=== PATIENT | female | born 2000 | race Two or more races ===

== ENCOUNTER 2025-06-07 04:00 | Inpatient (IN) | payer MEDICAID ==
[2025-06-05 11:27] LABS: Hematocrit 36.8 % (36.0-46.0); Hemoglobin 12.3 g/dL (12.2-16.2); Mean Corpuscular Hemoglobin 27.8 pg (28.0-32.0); Mean Corpuscular Volume 82.9 fL (80.0-100.0); Nucleated Red Blood Cells % 0.0 %
[2025-06-05 11:45] LABS: Alanine Aminotransferase 18 U/L (7-40); Anion Gap 10 (5-15); BUN/Creatinine Ratio 8.2 (10.0-20.0); Calcium 8.9 mg/dL (8.7-10.4); Carbon Dioxide 24 mmol/L (20-31); Chloride 105 mmol/L (98-107); Potassium 3.7 mmol/L (3.5-5.1); Sodium 139 mmol/L (136-145); Total Protein 7.3 g/dL (5.7-8.2)
[2025-06-05 11:46] LABS: Albumin 4.2 g/dL (3.2-4.8); Bilirubin, Total 0.9 mg/dL (0.2-1.0)
[2025-06-05 11:49] LABS: Alkaline Phosphatase 157 U/L (46-116); Blood Urea Nitrogen 5 mg/dL (9-23); Glucose 72 mg/dL (74-106)
[2025-06-05 12:04] LABS: INR 0.99 (0.9-1.15); Partial Thromboplastin Time 27.6 SEC (24.5-34.5); Prothrombin Time 10.5 sec (9.3-11.8)
[2025-06-05 12:11] LABS: Urine Protein, UAD TRACE (Negative)
[2025-06-05 12:57] LABS: Amphetamine Screen, Urine Neg (NEGATIVE); Barbiturate Scree,Urine Neg (NEGATIVE); Benzodiazephine Screen, Urine Neg (NEGATIVE); Cannabinoid Screen, Urine Neg (NEGATIVE); Cocaine Screen, Urine Neg (NEGATIVE); Opiate Scree,Urine Neg (NEGATIVE); Phencyclidine Screen, Urine Neg (NEGATIVE)
[2025-06-07] VITALS (15 sets, daily range): BP systolic 96–121; BP diastolic 52–72; PULSE 67–81; RESP 12–18; TEMP 97.7–98.4; O2SAT 95–100
[~2025-06-07] VITALS: Ht 160 cm; Wt 74.8 kg
[2025-06-07] MEDS: LACTATED RINGER'S 1,000 ML IV ONE (04:56)
[2025-06-07] MEDS ORDERED: MORPHINE SULF PF 5 MG/10 ML VIAL ONE (06:56)
[2025-06-07] MEDS ORDERED: ONDANSETRON HCL 4 MG/2 ML VIAL ONE (07:28)
[2025-06-07] MEDS: ceFAZolin 2 GM/D5W50ml 50 ML IV ONE (07:30)
[2025-06-07] MEDS ORDERED: GUM (CHEWING) 1 GUM CHEW CHEW ONE (08:00)
[2025-06-07] MEDS ORDERED: DOCU-94 PO (08:09)
[2025-06-07] MEDS ORDERED: HYDR-4072 PO (08:09)
[2025-06-07] MEDS ORDERED: IBUP-1456 PO (08:09)
[2025-06-07] MEDS ORDERED: NALOXONE HCL 0.4 MG/ML VIAL IV PRN (08:30)
[2025-06-07] MEDS ORDERED: MEPERIDINE HCL (25 MG/ML) 1ML VIAL IV PRN (08:30)
[2025-06-07] MEDS ORDERED: ONDANSETRON HCL 4 MG/2 ML VIAL IV PRN ×3 (08:30→14:30)
[2025-06-07] MEDS ORDERED: HYDROmorphone HCL 2 MG/ML VL/or syr IV PRN ×2 (08:30)
[2025-06-07] MEDS ORDERED: METOCLOPRAMIDE HCL 5MG/ml INJ 2ml VIAL IV PRN (08:30)
[2025-06-07] MEDS ORDERED: diphenhydrAMINE HCL 50 MG/1 ML VL IV PRN (08:30)
[2025-06-07] MEDS ORDERED: BUPIVACAINE/DEXTROSE MPF 0.75% 2 ML AMP IT ONE (08:34)
--- NOTE | 2025-06-07 09:37 | DVHHP ---
ADMIT DATE: 06/07/2025 CHIEF COMPLAINT: Desires repeat section with bilateral tubal ligation. HISTORY OF PRESENT ILLNESS: The patient is a 25-year-old 3, para 1, with an EDC 06/12, estimated gestational age of 39 weeks, admitted for repeat section with bilateral tubal ligation. The patient has polyhydramnios. The patient denies any rupture of membranes or vaginal bleeding. She understands the risks, complications, and failure rates with tubal sterilization. PAST MEDICAL HISTORY: None. PAST SURGICAL HISTORY: . SOCIAL HISTORY: None. FAMILY HISTORY: None. ORB/PRINCIPAL SYSTEMS ENGINEER HISTORY: One section. ALLERGIES: No known drug allergies. REVIEW OF SYSTEMS: Consistent with HPI. PHYSICAL EXAMINATION: VITAL SIGNS: Stable. Afebrile. HEENT: Within normal limits. CARDIOVASCULAR: Regular rate and rhythm. LUNGS: Clear to auscultation. BREASTS: Symmetrical, no masses. ABDOMEN: Gravid. Positive heart. PELVIC: Deferred. EXTREMITIES: No clubbing, cyanosis, or edema. IMPRESSION: * Intrauterine at 39 weeks. Desires repeat section. * Previous section. * Desires bilateral tubal ligation. PLAN: Repeat section with bilateral tubal ligation. Informed consent obtained. Complications of surgery including infection, bleeding, hematoma formation, injury to bowel or bladder, surrounding organ, possibility of DVT, pulmonary embolism, and risks of anesthesia were discussed with the patient and options reviewed, and all questions answered. The patient fully understands failure rate with this procedure. Use of Filshie clip discussed with the patient. The patient wishes to proceed with planned procedure. DO NURIA Garcia TID: [id number] RECEIPT: [id number]
[2025-06-07] MEDS: ACETAMINOPHEN IV 1000 MG/100ML (10MG/ML) IV PRN ×2 (09:53→21:59)
[2025-06-07] MEDS: METOCLOPRAMIDE HCL 5MG/ml INJ 2ml VIAL IV ONE (10:03)
[2025-06-07] MEDS: SODIUM CITR/CITRIC ACID ORAL SOLN 30 ML PO ONE (10:03)
[2025-06-07] MEDS: METHYLERGONOVINE MALEATE 0.2 MG/ML AMP IM ONE (10:04)
[2025-06-07] MEDS: TRANEXAMIC ACID 10 ML ONE (10:04)
[2025-06-07] MEDS: NALBUPHINE HCL 10 MG/1ml INJECTION SUBCUT ONE (10:05)
[2025-06-07] MEDS: LACTATED RINGER'S 1,000 ML IV SCH (10:30)
[2025-06-07] MEDS: LACT. RINGERS/OXYTOCIN 20UNITS 1,000 ML IV ONE (10:30)
--- NOTE | 2025-06-07 11:41 | POSTOP ---
Post-Operative Note Post-Operative Note Preop Diagnosis term preg desires rcs with btl Postop Diagnosis: same,nuchal cordx1 Operation performed rcs with btl Specimen bbay girl,apgars 8-8,nuchal cordx1,efw 6-14/3105grams Anesthesia: Regional Anesthesiologist: any Blood Loss(fluid mgmt) 800ml Surgeon Aliyah Miranda Mold Repairer verena Implant filschie clips Complications & Mgmt none Additional Remarks h and p job no [id number] Date 06/07/25 Time 08:02 Visit Coding OBGYN Date of Service: Jun 07, 2025 Billing Provider: ALIYAH MIRANDA DO LEAD PROJECT MANAGER Common Visit Codes: 66441-[id number] INP/OBS CARE (HIGH) LEAD PROJECT MANAGER Procedure Codes: 89329-RIBTC @ TIME OF , 50311-Z-MGHOCLG DELIVERY ONLY ALIYAH MIRANDA DO Jun 07, 2025 08:05
--- NOTE | 2025-06-07 11:41 | DVHOP2 ---
Operative Report DATE OF OPERATION: 06/07/25 PREOPERATIVE DIAGNOSES: 1. Term , desires repeat section.previous csx1 2. Desires bilateral tubal ligation POSTOPERATIVE DIAGNOSES: 1. Term , desires repeat section.previous csx1 2. Desires bilateral tubal ligation,nuchal cord PROCEDURES: Repeat section with bilateral tubal ligation via Filschie Clips SURGEON: Aliyah Seals D.O./verena ANESTHESIOLOGIST: Dr. agarwal TYPE OF ANESTHESIA : spinal ESTIMATED BLOOD LOSS: 500 mL CONSENT: The patient was informed of the risks and benefits of the procedure. These include but are not limited to , complications of anesthesia, p ostoperative infection, incomplete relief of symptoms, recurrence of symptoms, damage to blood vessels, nerves and tendons, deep venous thrombosis, pulmonary embolism and possible need for repeat surgery in the future. Surgery was opted. FINDINGS: Baby [f] with apgars [8] and [8]. Grossly normal appearing tubes and ovaries. nuchal cordx1 TISSUE TO PATHOLOGY: Placenta. PROCEDURE IN DETAIL: The patient was taken to the operating room where she was placed under spinal anesthesia. She was then prepped and draped in the usual sterile manner in supine position with a leftward tilt. A Pfannenstiel skin incision was then made 2 cm above the symphysis pubis. This incision was carried to the underlying layer of fascia. The fascia was nicked in the midline and the incision was extended laterally. The superior aspect of the fascial incision was grasped and elevated. Underlying rectus muscle was dissected off bluntly. The same procedure was done to the inferior aspect of the fascial incision. The rectus muscles were then in the midline. Peritoneum was identified and entered. Peritoneal incision was extended superiorly and inferiorly with good visualization of the bladder. Bladder blade was inserted. Vesicouterine peritoneum was identified and entered. Lower uterine segment was incised in a transverse fashion. The infant was delivered from vertex presentation. The infant was baby [f] with Apgars of [8] and [8]. Placenta was then removed manually. Uterus was exteriorized and cleared off all clots and debris. Uterine incision was repaired using 0 Vicryl in a double-layered fashion. No bleeding was noted. Bilateral tubal ligation was then performed using [place]. Placed in the ampullary region and identifying the fimbria distally. The isthmic portion of the right tube was clipped using Filschie Clip. The same procedure was done on the opposite side. No bleeding was noted. Peritoneum was closed using 0 Vicryl, fascia was closed using 0 [place], and skin was closed using jason. Estimated blood loss was noted to be 800 mL. The patient tolerated the procedure well. She was taken to the recovery room in stable condition. Visit Coding OBGYN Date of Service: Jun 07, 2025 Billing Provider: ALIYAH SEALS DO AUTO DESIGN CHECKER Common Visit Codes: 13564-ILPYETS INP/OBS CARE (HIGH) AUTO DESIGN CHECKER Procedure Codes: 04596-JUGGA @ TIME OF , 20032-S-PAHGBSR DELIVERY ONLY ALIYAH SEALS DO Jun 07, 2025 08:08
[2025-06-07] MEDS ORDERED: ceFAZolin 1GM/50ML 50 ML IV SCH (12:00)
[2025-06-07] MEDS: KETOROLAC TROMETH 30 MG/ML 1ML VIAL IV PRN (14:31)
[2025-06-07] MEDS: THROAT LOZENGES(CEPASTAT) MT PRN (14:32)
[2025-06-07] MEDS: ceFAZolin 1GM/50ML 50 ML IV SCH (16:16)
[2025-06-07 22:13] LABS: Hematocrit 34.4 % (36.0-46.0); Hemoglobin 11.5 g/dL (12.2-16.2); Mean Corpuscular Hemoglobin 28.0 pg (28.0-32.0); Mean Corpuscular Volume 83.6 fL (80.0-100.0); Nucleated Red Blood Cells % 0.0 %
[2025-06-08] VITALS (9 sets, daily range): BP systolic 100–125; BP diastolic 55–74; PULSE 67–76; RESP 14–18; TEMP 97.9–98.7; O2SAT 95–99
--- NOTE | 2025-06-08 03:48 | DVHPN2 ---
Progress Note Date Seen: Jun 08, 2025 Subjective *ZEUS Morrissey at bedside interpreting* Ayesha is baby Kaitlynn lemus upon entry to room. She is wondering if baby is getting enough food, as she does not have milk yet S: -Lochia minimal -Clear liquid diet well tolerated. -Ambulating and voiding well w/o feeling dizzy or lightheaded -Pain relieved with IV medication PRN - w/o problem vital signs Vital Sign Date Time Temp Pulse Resp B/P (MAP) Pulse Ox O2 Delivery O2 Flow Rate FiO2 06/08/25 03:00 76 18 114/74 (87) 97 06/07/25 23:00 98.1 98.1 06/07/25 18:45 Room Air 06/07/25 08:11 0 06/07/25 08:11 100 Total Intake and Output 06/07/25 06/07/25 06/08/25 15:00 23:00 07:00 Intake Total 1275 ml 900 ml Output Total 1200 ml 1425 ml 900 ml Balance -1200 ml -150 ml 0 ml medications Current Medications Medications Dose Ordered Sig/Debra Route Start Time Stop Time Status Last Admin Dose Admin Lactated Ringer's 1,000 ml @ 125 mls/hr Q8H IV 06/07/25 04:15 06/07/25 19:01 125 MLS/HR Ondansetron HCl 4 mg Q4HP PRN IV 06/07/25 14:30 Diphenhydramine HCl 25 mg Q4HP PRN IV 06/07/25 08:30 Ketorolac Tromethamine 30 mg Q6HP PRN IV 06/07/25 08:30 06/12/25 08:29 06/07/25 14:31 30 MG Cefazolin Sodium 50 ml @ 100 mls/hr Q8H IV 06/07/25 15:30 06/08/25 07:59 06/07/25 23:29 100 MLS/HR Acetaminophen 1,000 mg Q8HP PRN IV 06/07/25 17:30 06/07/25 21:59 1,000 MG Throat Lozenges 1 josselyn Q2HP PRN MT 06/07/25 13:30 06/07/25 14:32 1 [facility] laboratory and microbiology Laboratory Tests 06/07/25 22:00 06/05/25 11:00 Test 06/05/25 11:00 Range/Units Serum Glucose 72 L 74-106 mg/dL Objective O: -A&O x4. No apparent distress. Affect appropriate -Afebrile, VSS -Chest: heart and lung sounds normal. -Breasts: Nipples intact w/o cracks or soreness -Abdomen: normal BS, soft, non-tender, no rebound or guarding, fundus firm @ U- 1, -Lower abdominal incision site with dressing dry and intact. No edema, erythema or induration -Extremities: no edema or tenderness Problems(with codes): (1) S/P section Assessment/Plan A/P: 25 yo now Post operative & ppd # 1 s/p Repeat Section, doing well. Blood Type:B+ Breast feeding Rubella: immune -Continue pain management with IV medications as previously ordered, plan to transition to PO meds at 24 hours -Encouraged regular diet, increase fluid intake and fiber in diet to promote regular bowel movements, Laxative PRN -Educated patient on self-care and colostrum vs milk for baby. Reassured patient that baby is eating appropriately and getting the appropriate nutrients from colostrum -Continue routine care Plan discussed with: Patient and spouse Plan discussed with: Patient, Spouse Visit Coding OBGYN Date of Service: Jun 08, 2025 Billing Provider: GABRIELA MANRIQUEZ CNM PERSONNEL AND PAYROLL TECHNICIAN Common Visit Codes: 37916-[id number] INP/OBS CARE(MOD) GABIRELA MANRIQUEZ CNM Jun 08, 2025 03:48
[2025-06-08 09:41] LABS: Hematocrit 34.3 % (36.0-46.0); Hemoglobin 11.7 g/dL (12.2-16.2); Mean Corpuscular Hemoglobin 28.7 pg (28.0-32.0); Mean Corpuscular Volume 83.9 fL (80.0-100.0); Nucleated Red Blood Cells % 0.0 %
[2025-06-08] MEDS: IBUPROFEN 800 MG TAB PO PRN (10:42)
[2025-06-08] MEDS: DOCUSATE SOD 100 MG CAP PO SCH (12:58)
[2025-06-08] MEDS: HYDROcodone-ACET 5/325MG TAB PO PRN ×2 (12:58→18:13)
[2025-06-08] MEDS: SIMETHICONE 80 MG CHEWABLE TABLET PO SCH (22:55)
[2025-06-09 03:00] VITALS: BP 115/69; PULSE 66; RESP 16; TEMP 98.2; O2SAT 97
[2025-06-09 07:00] VITALS: BP 109/81; PULSE 68; RESP 16; TEMP 98.2; O2SAT 99
--- NOTE | 2025-06-09 09:26 | DVHDS2 ---
Physician Discharge Progress N Final Diagnosis: s/p Repeat C/Section and BTL Operations or Procedures: Operations or Procedures Repeat C/S and BTL Commentary: Commentary Normal C/S delivery w/ steriliz procedure, uncomplicated Normal post op course Condition on Discharge: Stable Disposition: Home Discharge Instructions: Diet: Regular Activity: Light activity Follow Up/Referral: [address] Miranda Medications: see eRX Follow Up Care: Discharge Statement: "Patient was advised to return to the ER or call 911 if any headaches, dizziness, shortness of breath, chest pain, abdominal pain, bleeding, fevers, or worsening of medical condition. Patient was counseled about treatment plan, medications, possible side effects, patientverbalized understanding. All questions were answered to the best of my ability. This discharge took greater then 30 minutes in planning, reviewing documentation, counseling the patient, and discussing with other team members." Visit Coding OBGYN Date of Service: Jun 09, 2025 Billing Provider: AVI ROB DO CHIEF NURSE ANESTHETIST Common Visit Codes: 99145-ZHZ/OBS DISCH DAY <30MIN AVI ROB DO Jun 09, 2025 09:25
[2025-06-09 11:10] VITALS: BP 113/99; PULSE 72; RESP 16; TEMP 98.5; O2SAT 99
[2025-06-09 14:08] VITALS: BP 112/89; PULSE 72; RESP 15; TEMP 98.5; O2SAT 99
== END 2025-06-09 14:08 | disposition home or self-care (01) | DRG 539 ==
LOC: LDRP 04:00
PROVIDERS: ADMIT Obstetrics & Gynecology; ATTEND Obstetrics & Gynecology
PROC: 10D00Z1 Extraction of Products of Conception, Low, Open Approach (ICD-10-PCS; 2025-06-07)
PROC: 0UL70CZ Occlusion of Bilateral Fallopian Tubes with Extraluminal Device, Open Approach (ICD-10-PCS; principal; 2025-06-07 07:14)
DX: O34.211 Maternal care for low transverse scar from previous cesarean delivery (principal); O69.81X0 Labor and delivery complicated by cord around neck, without compression, not applicable or unspecified; Z37.0 Single live birth; Z30.2 Encounter for sterilization; Z3A.39 39 weeks gestation of pregnancy
CPT/HCPCS: 36415; 59025; 80053; 80307; 81001; 85025; 85610; 85730; 86780; 86803; 86850; 86900; 86901; 94760; 94762; 96360; 96361; 96365; 96366; 96374; G0378; J0131; J0169; J1885; J2405; J2590